=== PATIENT | male | born 1960 | race African-American/Black ===

== ENCOUNTER 2021-06-06 13:10 | Inpatient (IN) | payer OTHER ==
[2021-06-06] MEDS: diazePAM 5 MG TABLET PO SCH (11:50)
[2021-06-06 13:22] VITALS: BMI 26.2
[2021-06-06] MEDS ORDERED: IBUPROFEN 400 MG TABLET (FP) PO PRN (19:50)
[2021-06-06] MEDS ORDERED: MAGNESIUM CITRATE 300 ML BOTTLE PO PRN (19:50)
[2021-06-06] MEDS ORDERED: BISMUTH SUBSALICYLATE 524 MG/30 ML PO PRN (19:50)
[2021-06-06] MEDS ORDERED: MAG HYDROX/AL HYDROX/SIMETH 30 ML UNIT-DOSE CUP PO PRN (19:50)
[2021-06-06] MEDS ORDERED: hydrOXYzine PAMOATE 25 MG CAPSULE (FP) PO PRN (19:50)
[2021-06-06] MEDS ORDERED: METHOCARBAMOL 500 MG TABLET PO PRN (19:50)
[2021-06-06] MEDS ORDERED: MAGNESIUM HYDROX 2400MG/30ML ORAL SUSPENSION 30 ML CUP PO PRN (19:50)
[2021-06-06] MEDS ORDERED: ONDANSETRON *ODT* 4 MG TABLET SL PRN (19:50)
[2021-06-06] MEDS ORDERED: ACETAMINOPHEN 325 MG TABLET (FP) PO PRN ×2 (19:50)
[2021-06-06] MEDS ORDERED: MENTHOL/PHENOL 1 EACH UD MM PRN (19:50)
[2021-06-06] MEDS: MELATONIN 5 MG TABLETS PO SCH (22:07)
[2021-06-06] MEDS: THIAMINE HCL 100 MG TABLET (FP) PO SCH (22:08)
[2021-06-06] MEDS ORDERED: diazePAM 5 MG TABLET ONE (22:09)
[2021-06-07] MEDS: diazePAM 5 MG TABLET PO SCH ×4 (06:04→23:07)
[2021-06-07] MEDS ORDERED: cloNIDine HCL 0.1 MG TABLET PO ONE (07:59)
[2021-06-07] MEDS: PRENATAL VITAMINS W/ FOLIC ACID TABLET (FP) PO SCH (15:45)
[2021-06-07] MEDS: metoPROLOL SUCCINATE 25 MG TAB.SR.24H (FP) PO SCH (15:50)
[2021-06-07] MEDS: amLODIPine BESYLATE 10 MG TABLET (FP) PO SCH (15:50)
[2021-06-07] MEDS: MELATONIN 5 MG TABLETS PO SCH (23:06)
[2021-06-07] MEDS: ATORVASTATIN CA 10 MG TABLET (FP) PO SCH (23:06)
[2021-06-07] MEDS: THIAMINE HCL 100 MG TABLET (FP) PO SCH (23:06)
[2021-06-07] MEDS: LATANOPROST 0.005% OPHTH SOLN 2.5ML BOTTLE OU SCH (23:09)
[2021-06-08] MEDS: diazePAM 5 MG TABLET PO SCH ×3 (06:08→22:15)
[2021-06-08] MEDS: diazePAM 5 MG TABLET PO PRN (10:33)
[2021-06-08] MEDS: PRENATAL VITAMINS W/ FOLIC ACID TABLET (FP) PO SCH (10:33)
[2021-06-08] MEDS: amLODIPine BESYLATE 10 MG TABLET (FP) PO SCH (10:34)
[2021-06-08] MEDS: metoPROLOL SUCCINATE 25 MG TAB.SR.24H (FP) PO SCH (10:34)
[2021-06-08 11:08] LABS: EPI CELLS 2 /uL (0-25.1); HYALINE CASTS 0 /uL (0-3.1); PH,URINE 6.5 (5.0-8.0); URINE APPEARANCE CLEAR; URINE BACTERIA 10 /uL (0-1359); URINE BILIRUBIN NEGATIVE (NEGATIVE); URINE COLOR YELLOW; URINE GLUCOSE (UA) NEGATIVE (NEGATIVE); URINE KETONE NEGATIVE (NEGATIVE); URINE LEUK ESTERASE NEGATIVE (NEGATIVE); URINE NITRITE NEGATIVE (NEGATIVE); URINE PROTEIN NEGATIVE (NEGATIVE); URINE RBC 3 /uL (0-23.9); URINE WBC 1 /uL (0-25.8)
[2021-06-08] MEDS: NICOTINE 10 MG CARTRIDGE (INHALER) IH PRN (11:31)
[2021-06-08] MEDS: ATORVASTATIN CA 10 MG TABLET (FP) PO SCH (22:14)
[2021-06-08] MEDS: MELATONIN 5 MG TABLETS PO SCH (22:14)
[2021-06-08] MEDS: THIAMINE HCL 100 MG TABLET (FP) PO SCH (22:15)
[2021-06-08] MEDS: LATANOPROST 0.005% OPHTH SOLN 2.5ML BOTTLE OU SCH (23:23)
[2021-06-09] MEDS: diazePAM 5 MG TABLET PO SCH ×2 (06:46→17:27)
[2021-06-09] MEDS: PRENATAL VITAMINS W/ FOLIC ACID TABLET (FP) PO SCH (10:29)
[2021-06-09] MEDS: NICOTINE 10 MG CARTRIDGE (INHALER) IH PRN (10:29)
[2021-06-09] MEDS: metoPROLOL SUCCINATE 25 MG TAB.SR.24H (FP) PO SCH (10:30)
[2021-06-09] MEDS: diazePAM 5 MG TABLET PO PRN (10:30)
[2021-06-09] MEDS: amLODIPine BESYLATE 10 MG TABLET (FP) PO SCH (10:30)
[2021-06-09 15:13] LABS: ALBUMIN 3.9 g/dl (3.4-5.0); CALCIUM 9.2 mg/dL (8.5-10.1)
[2021-06-09 15:14] LABS: BLOOD UREA NITROGEN 15.4 mg/dL (7-18)
[2021-06-09 15:17] LABS: CREATININE 1.1 mg/dL (0.55-1.3)
[2021-06-09 15:18] LABS: BILIRUBIN,TOTAL 0.8 mg/dL (0.2-1); TOT PROT 7.1 g/dl (6.4-8.2)
[2021-06-09 16:56] LABS: HEMATOCRIT 43.6 % (35.4-49); HEMOGLOBIN 14.8 GM/dL (11.7-16.9); MCH 32.3 pg (25.7-33.7); MCHC 33.9 g/dl (32.0-35.9); MEAN CELL VOLUME 95.5 fl (80-96); MEAN PLT VOLUME 8.6 fl (7.5-11.1); PLATELET COUNT 216 10^3/uL (134-434); RBC 4.56 M/mm3 (4.00-5.60); RDW 15.1 % (11.9-15.9); WHITE BLOOD COUNT 5.1 K/mm3 (4.0-10.0)
[2021-06-09 22:17] VITALS: PULSE 69
[2021-06-09] MEDS: THIAMINE HCL 100 MG TABLET (FP) PO SCH (22:32)
[2021-06-09] MEDS: MELATONIN 5 MG TABLETS PO SCH (22:32)
[2021-06-09] MEDS: ATORVASTATIN CA 10 MG TABLET (FP) PO SCH (22:32)
[2021-06-09] MEDS: LATANOPROST 0.005% OPHTH SOLN 2.5ML BOTTLE OU SCH (22:33)
[2021-06-10] MEDS ORDERED: diazePAM 5 MG TABLET PO ONE (06:00)
[2021-06-10 09:19] VITALS: BP 131/80; TEMP 96.8
[2021-06-10] MEDS: amLODIPine BESYLATE 10 MG TABLET (FP) PO SCH (10:08)
[2021-06-10] MEDS: PRENATAL VITAMINS W/ FOLIC ACID TABLET (FP) PO SCH (10:08)
[2021-06-10] MEDS: metoPROLOL SUCCINATE 25 MG TAB.SR.24H (FP) PO SCH (10:08)
== END 2021-06-10 09:25 | disposition other institution (70) | DRG 774 ==
LOC: YASAS 13:10 → Y3N 06-07 13:02
PROVIDERS: ADMIT Allergy & Immunology; ATTEND Allergy & Immunology
PROC: HZ2ZZZZ Detoxification Services for Substance Abuse Treatment (ICD-10-PCS; principal; 2021-06-07)
DX: F10.230 Alcohol dependence with withdrawal, uncomplicated (principal); F14.20 Cocaine dependence, uncomplicated; F17.210 Nicotine dependence, cigarettes, uncomplicated; I10 Essential (primary) hypertension; L20.9 Atopic dermatitis, unspecified; M19.90 Unspecified osteoarthritis, unspecified site
CPT/HCPCS: 36415; 80053; 81003; 85027; 86780; 93005; 93010; C9803; J0735; U0003; U0005